=== PATIENT | female | born 1980 | race Caucasian/White ===

== ENCOUNTER 2016-06-27 08:27 | Emergency (ER) | payer OTHER ==
[~2016-06-27] VITALS: Ht 162.6 cm; Wt 108.9 kg
[2016-06-27 10:02] LABS: BASO % 0.6 % (0.0-1.0); EOS # 0.4 K/mm3 (0.0-0.50); EOS % 7.2 % (0.0-3.0); LARGE UNSTAINED CELL # 0.1 K/mm3 (0.0-0.4); LYMPH % 19.9 % (24.0-44.0); MEAN CORPUSCULAR HEMOGLOBIN 30.1 pg (27.0-33.0); MEAN CORPUSCULAR HGB CONC 35.8 g/dl (32.0-36.5); MEAN CORPUSCULAR VOLUME 84.2 fl (80.0-96.0); MONO # 0.2 K/mm3 (0.0-0.8); MONO % 4.6 % (0.0-5.0); NEUTROPHILS # 3.4 K/mm3 (1.8-7.7); NEUTROPHILS % 66.6 % (36.0-66.0); PLATELET COUNT, AUTOMATED 252 k/mm3 (150-450); RED CELL DISTRIBUTION WIDTH 13.5 % (11.5-14.5); WHITE BLOOD COUNT 5.2 K/mm3 (4.0-10.0)
[2016-06-27 10:17] LABS: CONTROL LINE HCG INT CTR LINE PRESENT
[2016-06-27 10:21] VITALS: BP 124/78
[2016-06-27 10:32] LABS: ALBUMIN 3.6 GM/DL (3.2-5.2); ALBUMIN/GLOBULIN RATIO 0.88 (1.00-1.93); ALKALINE PHOSPHATASE 95 U/L (45-117); ALT/SGPT 28 U/L (12-78); ANION GAP 4 MEQ/L (8-16); AST/SGOT 26 U/L (15-37); BILIRUBIN,DIRECT < 0.1 MG/DL (0.0-0.2); BILIRUBIN,TOTAL 0.4 MG/DL (0.2-1.0); BLOOD UREA NITROGEN 11 MG/DL (7-18); CALCIUM LEVEL 8.6 MG/DL (8.5-10.1); CARBON DIOXIDE LEVEL 33 MEQ/L (21-32); CHLORIDE LEVEL 106 MEQ/L (98-107); CREATININE FOR GFR 0.94 MG/DL (0.55-1.02); GLOMERULAR FILTRATION RATE > 60.0 (>60); GLUCOSE, FASTING 95 MG/DL (70-105); POTASSIUM SERUM 4.3 MEQ/L (3.5-5.1); SODIUM LEVEL 143 MEQ/L (136-145); TOTAL PROTEIN 7.7 GM/DL (6.4-8.2)
[2016-06-27] MEDS ORDERED: MECL-68 PO (10:41)
[2016-06-27] MEDS ORDERED: ZOFR4TAB3 PO (10:41)
--- NOTE | 2016-06-29 05:46 | ECGEPIP ---
Stationary ECG Study [facility] - ED Test Date: 2016-06-27 Pat Name: JARAD PERRY Department: Room: - Gender: F Electrical Panel Builder: REJI : 1980 Requested By: MAGGIE Rubio Order Number: [id number] Reading MD: Pastor Curtis Measurements Intervals [place] Rate: 66 P: 53 [place]: 165 QRS: 73 QRSD: 113 T: 39 QT: 400 QTc: 420 Interpretive Statements SINUS RHYTHM LOW QRS VOLTAGE IN PRECORDIAL LEADS MODERATE INTRAVENTRICULAR CONDUCTION DELAY MODERATE T-WAVE ABNORMALITY, CONSIDER ANTERIOR ISCHEMIA NO PRIORS Electronically Signed On 06-29-2016 5:46:05 EDT by Pastor Curtis
== END 2016-06-27 10:53 | disposition home or self-care (01) ==
LOC: M ED 09:33
DX: R55 Syncope and collapse (principal); H81.10 Benign paroxysmal vertigo, unspecified ear

== ENCOUNTER → 2016-11-28 | Outpatient (REF) | payer OTHER ==
[~2016-11-28] MED LIST: MECL-68 PO; ZOFR4TAB3 PO
== END ==
LOC: M SFHCLERA 10:13
PROVIDERS: ATTEND Nurse Practitioner Family
DX: J02.9 Acute pharyngitis, unspecified (principal)

== ENCOUNTER 2017-09-22 18:42 | Emergency (ER) | payer OTHER ==
[2017-09-22] MEDS: KETOROLAC 60 MG/2 ML VIAL (J1885) IM (19:25)
[2017-09-22] MEDS: ONDANSETRON 4 MG ORAL DISINTEGRATING TAB (Q0162 PER 1MG) PO (19:25)
== END 2017-09-22 20:10 | disposition home or self-care (01) ==
LOC: M ED 18:42
DX: R51 Headache (principal)
CPT/HCPCS: Q0162

== ENCOUNTER → 2018-07-20 | Outpatient (CLI) | payer OTHER ==
[~2018-07-20] MED LIST changes: +ZARAH; +ZOFR4TAB14 PO; -ZOFR4TAB3 PO
--- NOTE | 2018-07-20 10:03 | REPMRS ---
Patient History The patient states she has not had a clinical breast exam in over a year. Family history of breast cancer at age 53 in mother. Taking hormonal contraceptives. Digital Mammo Screening Bilat: July 20, 2018 - Exam #: [id number] Bilateral CC and MLO view(s) were taken. Technologist: Mag Potter, Technologist No prior studies available for comparison. FINDINGS: There are scattered fibroglandular densities. There is no evidence of cancer on this mammogram. Assessment: BI-RADS/ACR category 2 mammogram. Benign Findings. Recommendation Routine screening mammogram of both breasts in 1 year (for women over age 40). This mammogram was interpreted with the aid of an FDA-approved computer-aided dectection system. THE LIFETIME RISK OF BREAST CANCER IS 20.4%, THEREFORE SUPPLEMENTAL SCREENING MRI OF THE BREASTS IS RECOMMENDED. Electronically Signed By: Barrington Borden MD 07/20/18 1002
== END ==
LOC: M RAD 08:47
PROVIDERS: ATTEND Obstetrics & Gynecology
DX: Z12.31 Encounter for screening mammogram for malignant neoplasm of breast (principal); Z80.3 Family history of malignant neoplasm of breast; Z79.3 Long term (current) use of hormonal contraceptives

== ENCOUNTER → 2018-11-29 | Outpatient (REF) | payer OTHER | LOC: M SFHCLERA 11:56 | PROVIDERS: ATTEND Nurse Practitioner Family | DX: J02.9 Acute pharyngitis, unspecified (principal) ==